=== PATIENT | male | born 1940 | race Caucasian/White ===

== ENCOUNTER → 2017-06-28 | Outpatient (CLI) | payer OTHER ==
[~2017-06-28] MED LIST: ASCO500 PO; ASPI81CH; ASPI81EC PO; Hair, Skin & N1 EACH PO; TAMO10
== END | disposition home or self-care (01) ==
LOC: PLD 15:53
DX: R31.21 Asymptomatic microscopic hematuria (principal)
CPT/HCPCS: 88108

== ENCOUNTER 2018-10-16 13:02 | Emergency (ER) | payer OTHER, SELFPAY ==
[~2018-10-16] VITALS: Ht 182.9 cm; Wt 127.0 kg
[2018-10-16 13:41] LABS: BASOPHILS ABSOLUTE AUTO 0.06 K/mm3 (0.00-0.23); BASOPHILS PERCENT AUTO 1 % (0-2); EOSINOPHILS PERCENT AUTO 6 % (0-6); Hemoglobin 17.8 g/dL (13.5-17.5); IMMATURE GRAN ABSOLUTE AUTO 0.05 K/mm3 (0.00-0.10); IMMATURE GRAN PERCENT AUTO 1 % (0-1); LYMPHOCYTES ABSOLUTE AUTO 1.08 K/mm3 (0.84-5.20); LYMPHOCYTES PERCENT AUTO 13 % (21-46); MONOCYTES PERCENT AUTO 7 % (4-13); Mean Corpuscular HGB 31.6 pg (26.0-34.0); Mean Corpuscular HGB Conc 32.2 g/dL (31.5-36.5); Mean Corpuscular Volume 98 fL (80-100); NEUTROPHILS ABSOLUTE AUTO 6.21 K/mm3 (1.96-9.15); NEUTROPHILS PERCENT AUTO 73 % (41-73); Platelet Count 226 K/mm3 (150-400); RDW Coefficient Variation 13.4 % (11.7-14.2); RDW Standard Deviation 49.4 fL (35.1-46.3); Red Blood Cell Count 5.63 M/mm3 (4.30-5.90)
[2018-10-16 13:42] LABS: Hematocrit 55.3 % (37.0-53.0)
[2018-10-16 14:14] LABS: Alanine Aminotransfer (ALT/SGP 31 U/L (12-78); Albumin, Blood 3.8 g/dL (3.4-5.0); Albumin/Globulin Ratio 1.2 (0.8-1.8); Alk Phos 69 U/L (50-136); Anion Gap 6 mmol/L (6-16); Aspartate Aminotrans (AST/SGOT 18 U/L (12-37); Bilirubin, Total 0.4 mg/dL (0.1-1.0); Blood Urea Nitrogen 14 mg/dL (8-24); Bun/Creatinine Ratio 20.5 (12.0-20.0); CO2, Blood 31 mmol/L (21-32); Calcium, Blood 8.6 mg/dL (8.5-10.1); Chloride, Blood 104 mmol/L (98-108); Creatinine, Blood 0.68 mg/dL (0.60-1.20); Globulin, Blood 3.1 g/dL (2.2-4.0); Glomerular Filtration Rate >60 (60-); Glucose, Blood 133 mg/dL (70-99); Potassium, Blood 4.2 mmol/L (3.5-5.5); Sodium, Blood 141 mmol/L (136-145); Total Protein, Blood 6.9 g/dL (6.4-8.2); Troponin I <0.015 ng/mL (0.000-0.040)
[2018-10-16] MEDS ORDERED: [UNRECOGNIZED DRUG - REMARK] PO (14:15)
[2018-10-16] MEDS ORDERED: ALBU90OI61 INH (16:25)
== END 2018-10-16 16:45 | disposition home or self-care (01) ==
LOC: ER 13:02
PROVIDERS: Physician Assistant
DX: J44.1 Chronic obstructive pulmonary disease with (acute) exacerbation (principal); Z79.899 Other long term (current) drug therapy; F17.210 Nicotine dependence, cigarettes, uncomplicated
CPT/HCPCS: 36415; 71046; 80053; 83880; 84484; 85025; 93005; 93010; 94640; 99284-25

== ENCOUNTER 2019-03-18 17:43 | Emergency (ER) | payer OTHER ==
[~2019-03-18] VITALS: Ht 188 cm; Wt 130.2 kg
[~2019-03-18 17:43] MED LIST changes: +ALBU90OI61 INH; +[UNRECOGNIZED DRUG - REMARK] PO
[2019-03-18 18:55] LABS: Source, Urine Clean Catch
[2019-03-18 18:57] LABS: Appearance, Urine Hazy (Clear); Bilirubin, Urine Neg (Neg); Blood, Urine 5+ (Neg); Glucose Qualitative, Urine Neg (Neg); Ketones, Urine 1+ (Neg); Leukocyte Esterase, Urine 2+ (Neg); Nitrite, Urine Neg (Neg); Protein, Urine 3+ (Neg); Specific Gravity, Urine 1.025 (1.003-1.022); Urobilinogen, Urine 1+ (Normal)
[2019-03-18 19:20] LABS: Color, Urine Amber (P-Yellow)
[2019-03-18 19:23] LABS: Bacteria Mod /hpf; Mucus Light (0-Heavy); Red Blood Cells, Urine 50-100 /hpf (0-2); Squamous Epithelial Cells Rare /hpf (Few)
[2019-03-18] MEDS ORDERED: Cipro500 MG PO (19:25)
[2019-03-18] MEDS ORDERED: IBUP800 PO (19:25)
[2019-03-18] MEDS ORDERED: Robaxin-750750 MG PO (19:25)
[2019-03-18] MEDS ORDERED: LIDO700A20 TOP (19:25)
== END 2019-03-18 19:33 | disposition home or self-care (01) ==
LOC: ER 17:43
PROVIDERS: Physician Assistant
DX: N39.0 Urinary tract infection, site not specified (principal); J44.9 Chronic obstructive pulmonary disease, unspecified; F17.210 Nicotine dependence, cigarettes, uncomplicated; Z85.3 Personal history of malignant neoplasm of breast; Z79.899 Other long term (current) drug therapy
CPT/HCPCS: 81001; 87086; 99283

== ENCOUNTER 2019-05-13 12:21 | Emergency (ER) | payer OTHER ==
[~2019-05-13] VITALS: Ht 182.9 cm; Wt 117.9 kg
[~2019-05-13 12:21] MED LIST changes: +Cipro500 MG PO; +IBUP800 PO; +LIDO700A20 TOP; +Robaxin-750750 MG PO
[2019-05-13] MEDS ORDERED: Percocet 5-3251 EACH PO (13:12)
[2019-05-13] MEDS ORDERED: CYCL10 PO (13:34)
== END 2019-05-13 14:06 | disposition home or self-care (01) ==
LOC: ER 12:21
DX: S42.331A Displaced oblique fracture of shaft of humerus, right arm, initial encounter for closed fracture (principal); F17.210 Nicotine dependence, cigarettes, uncomplicated; Z79.899 Other long term (current) drug therapy; Z79.51 Long term (current) use of inhaled steroids; X58.XXXA Exposure to other specified factors, initial encounter
CPT/HCPCS: 29105; 73060; 73070; 99283-25

== ENCOUNTER 2019-08-23 12:22 | Inpatient (IN) | payer OTHER ==
[~2019-08-23] VITALS: Ht 182.9 cm; Wt 105.0 kg
[~2019-08-23 12:22] MED LIST changes: +CYCL10 PO; +Percocet 5-3251 EACH PO
[2019-08-23] MEDS ORDERED: TRAM50 PO (15:02)
[2019-08-23] MEDS ORDERED: Robaxin750 MG PO (15:04)
[2019-08-23 15:27] LABS: BASOPHILS ABSOLUTE AUTO 0.01 K/mm3 (0.00-0.23); BASOPHILS PERCENT AUTO 0 % (0-2); EOSINOPHILS ABSOLUTE AUTO 0.05 K/mm3 (0.00-0.68); EOSINOPHILS PERCENT AUTO 1 % (0-6); Hematocrit 36.5 % (37.0-53.0); Hemoglobin 11.5 g/dL (13.5-17.5); IMMATURE GRAN ABSOLUTE AUTO 0.01 K/mm3 (0.00-0.10); IMMATURE GRAN PERCENT AUTO 0 % (0-1); LYMPHOCYTES ABSOLUTE AUTO 0.93 K/mm3 (0.84-5.20); LYMPHOCYTES PERCENT AUTO 19 % (21-46); MONOCYTES ABSOLUTE AUTO 0.42 K/mm3 (0.16-1.47); MONOCYTES PERCENT AUTO 9 % (4-13); Mean Corpuscular HGB Conc 31.5 g/dL (31.5-36.5); Mean Corpuscular Volume 95 fL (80-100); Mean Platelet Volume 10.1 fL (9.1-12.4); NEUTROPHILS ABSOLUTE AUTO 3.43 K/mm3 (1.96-9.15); NEUTROPHILS PERCENT AUTO 71 % (41-73); Platelet Count 146 K/mm3 (150-400); RDW Coefficient Variation 14.2 % (11.7-14.2); Red Blood Cell Count 3.83 M/mm3 (4.30-5.90); White Blood Cell Count 4.85 K/mm3 (4.00-11.30)
[2019-08-23 15:46] LABS: Anion Gap 7 mmol/L (6-16); Blood Urea Nitrogen 12 mg/dL (8-24); CO2, Blood 19 mmol/L (21-32); Calcium, Blood 6.1 mg/dL (8.5-10.1); Chloride, Blood 116 mmol/L (98-108); Glomerular Filtration Rate >60 (60-); Glucose, Blood 70 mg/dL (70-99); Potassium, Blood 3.7 mmol/L (3.5-5.5); Sodium, Blood 142 mmol/L (136-145)
--- NOTE | 2019-08-23 15:46 | NUR ---
TO DAY SURGERY VIA BED
--- NOTE | 2019-08-23 20:59 | NUR ---
ARRIVAL FROM PACU PT ARRIVED AT APPROX 2019. PT SLIGHLT CONFUSED UPON ARRIVAL TO UNIT, HAS SINCE CLEARED UP. PT AA0X4. TOLERATING PO WELL, EATING HIS DINNER, DRINKING FLUIDS. DENIES PAIN CURRENTLY. 4L VIA OXYMIZER AT THIS TIME SATS 92% CONTINOUS BIOX APPLIED SCD'S ON. DRESSING CDI. PPX4 SENSATION INTACT WIGGLES TOES. INCENTIVE SPIROMETRY GIVEN, PT EDUCATED AND THEN HE DEMONSTRATED.
--- NOTE | 2019-08-24 02:10 | NUR ---
NO VOID SINCE RETURNING TO FLOOR AT 7. BLADDER SCANNED PER PROTOCOL 590ML. STRAIGHT CATH PER PROTOCOL 700 OUT. PT TOLERATED WELL AND STATED RELIEF. CURRENTLY RESTING IN BED, DENIES FURTHER NEEDS AT THIS TIME.
--- NOTE | 2019-08-24 04:27 | NUR ---
SHIFT SUMMARY POD 1 LEFT TROCHANTERIC NAILING. DRESSINGS CDI, REPORTS MINIMAL PAIN DURING SHIFT. ABLE TO STAND AT BEDSIDE WITH CANE. URINARY RETENTION, STRAIGHT CATH PER PROTOCOL 700ML. TOLERATED WELL. TOLERATING REGULAR DIET, DRINKING WATER. REPOSITIONS SELF IN BED. AA0X4, INITIAL CONFUSION R/T ANESTHESIA HAS WORN OFF.
--- NOTE | 2019-08-24 13:12 | NUR ---
PT CONTINUING TO HAVE URINARY RETENTION AND NEEDING 1-2L OF 02 TO MAINTAIN SPO2 ABOVE 90%. ORDER FOR [facility] CONSULT AT THIS TIME.
--- NOTE | 2019-08-24 13:49 | NUR ---
AT ABOUT 1345 PT BECAME ANGRY AND ANNOYED WITH THIS RN STATING THAT HE WAS READY TO HAVE THERAPY, THAT JORGE THE THERAPIST WAS SUPPOSED TO BE BACK IN HIS ROOM BY 1300. PT SAYS THAT HE IS READY TO LEAVE THE HOSPITAL AND PROCEEDED TO REMOVE HIS PULSE OXIMETER, OXYGEN, TEDS, AND NON SKID SOCKS. PT REPORTS THAT HE "CAN WALK OUT ON HIS OWN" WHEN HE HAS NEEDED 1 ASSIST, FWW AND GAIT BELT TO AMBULATE SAFELY. BUCKET CHUCKER SONIDO MADE AWARE WELL JORGE PHYSICAL THERAPIST. JORGE REPORTS THAT HE WILL BE IN TO SEE PT SHORTLY. PT DAUGHTER IS IN ROOM AT THIS TIME SHE WILL BE HELPING PT AT HOME AND WAS ASKED TO BE PRESENT WHILE PT IS DOING THERAPY. WILL NISHM
--- NOTE | 2019-08-24 14:11 | NUR ---
DR. RAI CONSULTED FOR [employer]. ATTEMPTED TO CALL DR. RAI AT ABOUT 1350, DR. RAI REPORTS THAT HE WILL CALL BACK. AWAITING CALL AT THIS TIME
--- NOTE | 2019-08-24 15:09 | NUR ---
PT IS REFUSING BLADDER SCAN AT THIS TIME AND IS ADAMIT ABOUT BEING DISCHARGED, DR. RAI MADE AWARE. PT WAS ABLE TO HAVE 2ND SESSION AND IS ROCCOMENDING HOME HEALTH. PER DR. RAI, PT DOES NOT NEED TO BE SEEN IF PLANNING ON LEAVING AMA ANYWAY. DR. CAMEJO NOTIFIED OF PT WANTING TO LEAVE DISPITE HAVING HYPOXIA DURING SLEEP( PT DROPS TO 84% ON RA WHILE ASLEEP AND AT TIMES 88% WHILE AWAKE) AND URINE RETENTION WELL NEEDING HOME HEALTH ADDED TO DISCHARGE SUMMARY.
--- NOTE | 2019-08-24 15:42 | NUR ---
ATTEMPTED TO SPEAK TO PT AGAIN AT THIS TIME. PT IS REFUSING TO LISTEN TO THIS RN GIVING HIM AN UPDATE THAT DR. CAMEJO WAS MADE AWARE OF HIS STATUS AND THAT HE WANTS TO LEAVE. PT JUST GOT FRUSTRATED AT THIS RN AND ASKS THAT IV BE TAKEN OUT AND "TO JUST LEAVE" AND THAT "HE HAS WAITED LONG ENOUGH". PT DAUGHTER IS AT BEDSIDE AND IS HELPING CALM PT. SPOKE WITH DR. CAMEJO AT ABOUT 1540, HE PLANS TO COME SPEAK WITH PT.
[2019-08-24] MEDS ORDERED: XARELTO20 MG PO (16:01)
[2019-08-24] MEDS ORDERED: ROXICODONE5 MG PO (16:02)
--- NOTE | 2019-08-24 17:06 | NUR ---
DISCHARGE: PER DR. CAMEJO , PT ABLE TO BE DISCHARGED AT THIS TIME. ATTEMPTED TO GIVE PT EDUCATION IN ROOM, PT INSTEAD WOULD LIKE THIS RN TO JUST DO THE EDUCATION WITH HIS DAUGHTER. PT DID AGREE TO SIGN DC PAPERWORK. CURRENTLY NO OXYCODONE SCRIPT IN CHART, PT REPORTS THAT HE HAS PILLS AT HOME HE CAN TAKE AND DOESN'T NEED SCRIPT. PT ALSO DOES NOT WANT TO WAIT FOR DR. CAMEJO TO SIGN A SCRIPT FOR OXYCODONE. PT DAUGHTER GIVEN AQUACEL DRESSINGS AND GIVEN DC EDUCATION AFTER PT LEFT UNIT VIA WHEELCHAIR WITH RISA ESCOBEDO. MED REC FAXED TO [facility] AT REQUEST OF DAUGHTER.
[2019-08-28 11:05] LABS: Performing Lab SYMBIODX; Test Name UROPLAKIN11
== END 2019-08-24 16:30 | disposition home health service (06) | DRG 481 ==
LOC: ORSCMMR 12:22 → SURS 13:49
PROVIDERS: ADMIT Orthopaedic Surgery
PROC: 0QS734Z Reposition Left Upper Femur with Internal Fixation Device, Percutaneous Approach (ICD-10-PCS; principal; 2019-08-23 17:15)
DX: M84.452A Pathological fracture, left femur, initial encounter for fracture (principal); C79.51 Secondary malignant neoplasm of bone; C61 Malignant neoplasm of prostate; Z85.3 Personal history of malignant neoplasm of breast; E66.9 Obesity, unspecified; F17.210 Nicotine dependence, cigarettes, uncomplicated; Z68.31 Body mass index [BMI] 31.0-31.9, adult
CPT/HCPCS: 80048; 85025; 88305; 88311; 88341; 88342; 90686; 93005; 93010; 94762; 97110; 97116; 97162; 97166; 97530; 97535; A9270; C1713; C1769; J0690; J1100; J1885; J2370; J2405; J2704; J3010; J3370; J7050; J7120